=== PATIENT | female | born 1990 | race Caucasian/White ===

== ENCOUNTER 2022-04-23 08:58 | Outpatient (CLI) | payer SELFPAY ==
[2022-04-23 15:08] LABS: GC DNA Amplified* NOT DETECTED (No Detected)
[2022-04-23 15:57] LABS: Chlamydia DNA Amplified* DETECTED (No Detected)
== END 2022-04-23 08:59 | disposition home or self-care (01) ==
LOC: FRMREF 08:59
PROVIDERS: Visit Provider Registered Nurse
DX: Z11.3 Encounter for screening for infections with a predominantly sexual mode of transmission (principal)
CPT/HCPCS: 87491; 87591

== ENCOUNTER 2022-12-11 10:39 | Outpatient (CLI) | payer SELFPAY ==
[2022-12-11 14:53] LABS: Chlamydia DNA Amplified* NOT DETECTED (No Detected); GC DNA Amplified* NOT DETECTED (No Detected)
== END 2022-12-11 10:40 | disposition home or self-care (01) ==
LOC: NFLDREF 10:39
PROVIDERS: Visit Provider Registered Nurse
DX: N89.8 Other specified noninflammatory disorders of vagina (principal)
CPT/HCPCS: 0353U; 87491; 87591